=== PATIENT | female | born 1955 | race Caucasian/White ===

== ENCOUNTER → 2017-02-07 | Outpatient (CLI) | payer BC ==
[2017-02-07 11:55] LABS: HEMOGLOBIN 12.2 gm/dl (12.3-15.3); RED BLOOD COUNT 3.67 M/UL (4.00-5.10); WHITE BLOOD COUNT 4.4 K/UL (4.5-11.0)
[2017-02-07 12:15] LABS: BUN/CREATININE RATIO 16 (0-10)
== END ==
LOC: LAB 11:24
PROVIDERS: Family Medicine
DX: E03.9 Hypothyroidism, unspecified (principal); E78.5 Hyperlipidemia, unspecified
CPT/HCPCS: 36415; 80053; 80061; 84439; 84443; 85025

== ENCOUNTER 2020-09-14 23:30 | Observation (INO) | payer BC ==
[~2020-09-14] VITALS: Ht 154.9 cm; Wt 65.8 kg
[~2020-09-14 23:30] MED LIST: ALLEGRA ALLERG180 MG PO; ANTIVERT 25MG T25 MG PO; BREO ELLIPTA 21 EACH INH; CARAFATE1 GM PO; COMBIVENT0.074 GM/I INH; CRESTOR5 MG PO; ENDOCET 10-3251 EACH PO; FEOSOL325 MG PO; FISH OIL CONC1000 MG PO; LEXAPRO20 MG PO; MUCINEX600 MG PO; NEXIUM40 MG PO; NORCO 7.5-3251 EACH PO; OMNICEF 300 MG300 MG PO; RELAFEN 750 MG750 MG PO; SINGULAIR10 MG PO; SYNTHROID25 MCG PO; TOPAMAX25 MG PO; VITAMIN B-121000 MCG PO; VITAMIN C 250250 MG PO; ZANAFLEX4 MG PO; ZEBETA 5 MG TAB5 MG PO; ZOFRAN4 MG PO
[2020-09-15 05:13] LABS: HEMOGLOBIN 12.8 gm/dl (12.3-15.3); RED BLOOD COUNT 3.82 M/UL (4.00-5.10)
[2020-09-15 05:14] LABS: BUN/CREATININE RATIO 25 (0-10)
[2020-09-16 05:52] LABS: HEMOGLOBIN 10.6 gm/dl (12.3-15.3); RED BLOOD COUNT 3.1 M/UL (4.00-5.10)
[2020-09-16 06:26] LABS: BUN/CREATININE RATIO 16 (0-10)
== END 2020-09-17 17:14 | disposition home or self-care (01) ==
LOC: M/S 09-15 01:31
PROVIDERS: Internal Medicine; ADMIT Internal Medicine
DX: K56.600 Partial intestinal obstruction, unspecified as to cause (principal); I25.10 Atherosclerotic heart disease of native coronary artery without angina pectoris; Z95.5 Presence of coronary angioplasty implant and graft; I10 Essential (primary) hypertension; E78.5 Hyperlipidemia, unspecified; E03.9 Hypothyroidism, unspecified; K21.9 Gastro-esophageal reflux disease without esophagitis; K22.70 Barrett's esophagus without dysplasia; J45.909 Unspecified asthma, uncomplicated; Z88.8 Allergy status to other drugs, medicaments and biological substances; Z87.891 Personal history of nicotine dependence; Z79.899 Other long term (current) drug therapy; Z85.828 Personal history of other malignant neoplasm of skin; Z20.828 Contact with and (suspected) exposure to other viral communicable diseases
CPT/HCPCS: 36415; 80053; 83605; 85025; 93005; 96372; 96374; C9113; G0378; G0379; J1650; J7030; U0003

== ENCOUNTER → 2022-05-05 | Outpatient (CLI) | payer OTHER, MEDICARE | LOC: RAD 17:32 | DX: M25.511 Pain in right shoulder (principal); M19.011 Primary osteoarthritis, right shoulder | CPT/HCPCS: 73030 ==